=== PATIENT | male | born 1965 | race Caucasian/White ===

== ENCOUNTER → 2020-07-19 08:03 | Outpatient (CLI) | payer OTHER, BC, SELFPAY ==
[2020-07-19 11:20] LABS: COVID19 -Nasal RAPID Negative (Negative)
== END ==
PROVIDERS: Family Provider Family Medicine; PCP Family Medicine; Visit Provider Family Medicine Sleep Medicine
DX: Z20.822 Contact with and (suspected) exposure to COVID-19 (principal)
CPT/HCPCS: 87635; C9803

== ENCOUNTER → 2021-04-26 09:50 | Outpatient (CLI) | payer BC, OTHER, SELFPAY ==
[2021-04-26 10:33] LABS: Add Manual Diff / Slide Review NO; Basophils Absolute Auto 0 /uL (0-100); Basophils Percent Auto 0.5 % (0-2); Eosinophils Absolute Auto 100 /uL (0-450); Eosinophils Percent Auto 2.1 % (2-4); Hemoglobin 15.6 g/dL (13.5-17.5); Lymphocytes Absolute Auto 2000 /uL (1100-4500); Lymphocytes Percent Auto 30.1 % (25-40); Mean Corpuscular HGB Conc 34.5 % (30-36); Mean Corpuscular Hemoglobin 30.3 PG (26-34); Mean Corpuscular Volume 87.7 fL (80-100); Monocytes Absolute Auto 800 /uL (0-900); Monocytes Percent Auto 12.1 % (3-14); Neutrophils Absolute Auto 3600 /uL (1500-7000); Neutrophils Percent Auto 55.2 % (50-75); Platelet Count 203 X10^3/uL (150-400); Red Blood Cell Count 5.13 X10^6/uL (4.5-5.9); Red Cell Distribution Width 12.7 % (11.6-14.8); White Blood Cell Count 6.6 X10^3/uL (4.5-11.0)
[2021-04-26 11:50] LABS: Alanine Aminotransferase 23 IU/L (<50); Albumin 4.4 g/dL (3.5-5.0); Albumin Globulin Ratio 1.7 (1.0-2.8); Alkaline Phosphatase 67 U/L (38-126); Aspartate Aminotransferase 23 IU/L (17-59); BUN Creatinine Ratio 17.4 (6-22); Bilirubin Total 0.9 mg/dL (0.2-1.3); Blood Urea Nitrogen 19 mg/dL (9-20); Calcium 9.8 mg/dL (8.4-10.2); Carbon Dioxide 31 mmol/L (22-32); Chloride 98 mmol/L (98-107); Cholesterol 205 mg/dL (140-199); Estimated Glomerular Filt Rate > 60.0 mL/min (>60); Globulin 2.6 g/dL (1.7-4.1); Glucose 101 mg/dL (70-100); HDL Cholesterol 36 mg/dL (40-60); HEMOLYSIS < 15 (0-50); LDL Cholesterol Calculated 137 mg/dL (<100); Potassium 4.5 mmol/L (3.4-5.1); Sodium 136 mmol/L (137-145); Triglycerides 162 mg/dL (35-150)
[2021-04-26 12:19] LABS: Prostate Specific Antigen 1.24 ng/mL (0.10-4.00)
[2021-04-27 16:57] LABS: SARS CoV19 IgG Negative (Negative); SARS-CoV19- IgM Negative (Negative)
== END ==
PROVIDERS: Family Provider Family Medicine; PCP Family Medicine; Referring Provider Family Medicine; Visit Provider Family Medicine
DX: K51.90 Ulcerative colitis, unspecified, without complications (principal); Z13.220 Encounter for screening for lipoid disorders; Z12.5 Encounter for screening for malignant neoplasm of prostate; Z78.9 Other specified health status
CPT/HCPCS: 36415; 80053; 80061; 84153; 85025; 86769

== ENCOUNTER → 2021-05-03 16:36 | Outpatient (CLI) | payer BC, OTHER, SELFPAY ==
[2021-05-03 17:35] LABS: Add Manual Diff / Slide Review NO; Basophils Absolute Auto 0 /uL (0-100); Basophils Percent Auto 0.4 % (0-2); Eosinophils Absolute Auto 100 /uL (0-450); Eosinophils Percent Auto 1.7 % (2-4); Hematocrit 44.1 % (41-53); Hemoglobin 15.1 g/dL (13.5-17.5); Lymphocytes Absolute Auto 2800 /uL (1100-4500); Lymphocytes Percent Auto 32.7 % (25-40); Mean Corpuscular HGB Conc 34.3 % (30-36); Mean Corpuscular Hemoglobin 30.1 PG (26-34); Mean Corpuscular Volume 87.8 fL (80-100); Monocytes Absolute Auto 900 /uL (0-900); Monocytes Percent Auto 10.4 % (3-14); Neutrophils Absolute Auto 4800 /uL (1500-7000); Neutrophils Percent Auto 54.8 % (50-75); Platelet Count 223 X10^3/uL (150-400); Red Blood Cell Count 5.02 X10^6/uL (4.5-5.9); Red Cell Distribution Width 12.7 % (11.6-14.8); White Blood Cell Count 8.7 X10^3/uL (4.5-11.0)
[2021-05-03 18:05] LABS: Alanine Aminotransferase 21 IU/L (<50); Albumin 4.4 g/dL (3.5-5.0); Albumin Globulin Ratio 1.7 (1.0-2.8); Alkaline Phosphatase 67 U/L (38-126); Aspartate Aminotransferase 25 IU/L (17-59); BUN Creatinine Ratio 23.7 (6-22); Bilirubin Total 0.7 mg/dL (0.2-1.3); Blood Urea Nitrogen 22 mg/dL (9-20); C-Reactive Protein Quant < 0.5 mg/dL (<1.0); Calcium 9.3 mg/dL (8.4-10.2); Carbon Dioxide 30 mmol/L (22-32); Chloride 99 mmol/L (98-107); Estimated Glomerular Filt Rate > 60.0 mL/min (>60); Globulin 2.6 g/dL (1.7-4.1); Glucose 94 mg/dL (70-100); HEMOLYSIS 23 (0-50); Potassium 4.2 mmol/L (3.4-5.1); Sodium 136 mmol/L (137-145)
[2021-05-03 18:31] LABS: Erythrocyte Sedimentation Rate 2 MM/HR (0-15)
== END ==
PROVIDERS: Family Provider Family Medicine; PCP Family Medicine; Referring Provider Physician Assistant; Visit Provider Physician Assistant
DX: K51.90 Ulcerative colitis, unspecified, without complications (principal)
CPT/HCPCS: 36415; 80053; 85025; 85651; 86140

== ENCOUNTER → 2022-07-03 12:22 | Outpatient (CLI) | payer BC, OTHER, SELFPAY ==
[2022-07-03 13:03] LABS: Add Manual Diff / Slide Review NO; Basophils Absolute Auto 100 /uL (0-100); Basophils Percent Auto 0.6 % (0-2); Eosinophils Absolute Auto 100 /uL (0-450); Eosinophils Percent Auto 1.4 % (2-4); Hematocrit 45.4 % (41-53); Hemoglobin 15.7 g/dL (13.5-17.5); Lymphocytes Absolute Auto 2600 /uL (1100-4500); Lymphocytes Percent Auto 32.5 % (25-40); Mean Corpuscular HGB Conc 34.7 % (30-36); Mean Corpuscular Hemoglobin 30.3 PG (26-34); Mean Corpuscular Volume 87.3 fL (80-100); Monocytes Absolute Auto 1000 /uL (0-900); Monocytes Percent Auto 12.1 % (3-14); Neutrophils Absolute Auto 4200 /uL (1500-7000); Neutrophils Percent Auto 53.4 % (50-75); Platelet Count 213 X10^3/uL (150-400); White Blood Cell Count 7.9 X10^3/uL (4.5-11.0)
[2022-07-03 13:40] LABS: Alanine Aminotransferase 25 IU/L (<50); Albumin 4.4 g/dL (3.5-5.0); Albumin Globulin Ratio 1.4 (1.0-2.8); Alkaline Phosphatase 72 U/L (38-126); Aspartate Aminotransferase 23 IU/L (17-59); BUN Creatinine Ratio 25.3 (6-22); Bilirubin Total 0.4 mg/dL (0.2-1.3); Blood Urea Nitrogen 24 mg/dL (9-20); Carbon Dioxide 30 mmol/L (22-32); Chloride 98 mmol/L (98-107); Estimated Glomerular Filt Rate > 60 mL/min (>60); Globulin 3.2 g/dL (1.7-4.1); Glucose 96 mg/dL (70-100); HEMOLYSIS < 15 (0-50); Potassium 4.5 mmol/L (3.4-5.1); Sodium 139 mmol/L (137-145); Total Protein 7.6 g/dL (6.3-8.2)
[2022-07-03 14:42] LABS: TSH w/ Reflex to FT4 0.61 uIU/mL (0.47-4.68)
[2022-07-07 11:34] LABS: Cholesterol 213 mg/dL (140-199); HDL Cholesterol 34 mg/dL (40-60); LDL Cholesterol Calculated 147 mg/dL (<100); Triglycerides 158 mg/dL (35-150)
== END ==
PROVIDERS: Family Provider Family Medicine; PCP Family Medicine; Referring Provider Family Medicine; Visit Provider Family Medicine
DX: E78.2 Mixed hyperlipidemia (principal); I10 Essential (primary) hypertension; K51.90 Ulcerative colitis, unspecified, without complications; R10.9 Unspecified abdominal pain
CPT/HCPCS: 36415; 80053; 80061; 84443; 85025

== ENCOUNTER → 2022-07-15 11:29 | Outpatient (CLI) | payer BC, OTHER, SELFPAY ==
--- NOTE | 2022-07-15 11:31 | DI.US.S_ITS ---
PROCEDURE: US ABDOMEN COMPLETE INDICATIONS: ABDOMINAL PAIN TECHNIQUE: Real-time scanning was performed of the abdominal and retroperitoneal organs, with image documentation. COMPARISON: [facility], CT, ABDOMEN/PELVIS WITH CONTRAST, 02/23/2009, 6:54. FINDINGS: Liver: The liver demonstrates normal size. The liver demonstrates generalized mildly increased echogenicity. This decreases ultrasound sensitivity for detection of hepatic masses. Multiple liver cysts are seen. Within the left mid liver, there is an 8 mm cyst seen. Within the left liver anteriorly, there is a septated 7 mm cyst seen. Within the anterior right liver, there is a septated 11 mm cyst. Gallbladder: No findings of gallstones or sludge are seen. The gallbladder wall is not thickened, measuring 3 mm or less. No specific pericholecystic fluid is seen. The sonographic Dailey sign is negative. Biliary ducts: Intrahepatic bile ducts are non-dilated. Extrahepatic bile duct caliber measures 3 mm. Normal is 6-7 mm or less in diameter, or 10 mm or less post-cholecystectomy. Pancreas: Not well seen. Spleen: Spleen is normal in size and homogeneous in echotexture. Kidneys: Kidneys are normal in size and echotexture. Right kidney measures 11.3 cm long; left kidney measures 11.7 cm long. No hydronephrosis or nephrolithiasis. No solid masses. Aorta: Visualized aorta is normal in caliber at less than 3 cm. Iliacs: Not well seen. IVC: Intrahepatic inferior vena cava is patent. Miscellaneous: No free abdominal fluid. IMPRESSION: The gallbladder demonstrates a normal sonographic appearance. No biliary dilatation is seen. The pancreas and the iliac arteries are not well seen. Home pectus Additional findings: Simple appearing liver cysts Mild fatty liver infiltration Dictated by: Tomás Bey M.D. on 07/15/2022 at 12:49 Approved by: Tomás Bey M.D. on 07/15/2022 at 12:51
== END ==
PROVIDERS: Family Provider Family Medicine; PCP Family Medicine; Referring Provider Family Medicine; Visit Provider Family Medicine
DX: K51.90 Ulcerative colitis, unspecified, without complications (principal); K76.89 Other specified diseases of liver; K76.0 Fatty (change of) liver, not elsewhere classified; I10 Essential (primary) hypertension; E78.2 Mixed hyperlipidemia; R10.9 Unspecified abdominal pain
CPT/HCPCS: 76700

== ENCOUNTER → 2023-07-11 08:12 | Outpatient (CLI) | payer BC, OTHER, SELFPAY ==
[2023-07-11 09:08] LABS: Add Manual Diff / Slide Review NO; Basophils Absolute Auto 0 /uL (0-100); Basophils Percent Auto 0.7 % (0-2); Eosinophils Absolute Auto 200 /uL (0-450); Eosinophils Percent Auto 3.1 % (2-4); Hematocrit 45.7 % (41-53); Hemoglobin 15.8 g/dL (13.5-17.5); Lymphocytes Absolute Auto 2000 /uL (1100-4500); Lymphocytes Percent Auto 33.1 % (25-40); Mean Corpuscular HGB Conc 34.4 % (30-36); Mean Corpuscular Hemoglobin 29.9 PG (26-34); Mean Corpuscular Volume 86.8 fL (80-100); Monocytes Absolute Auto 900 /uL (0-900); Monocytes Percent Auto 14.3 % (3-14); Neutrophils Absolute Auto 2900 /uL (1500-7000); Neutrophils Percent Auto 48.8 % (50-75); Platelet Count 197 X10^3/uL (150-400); Red Blood Cell Count 5.27 X10^6/uL (4.5-5.9); Red Cell Distribution Width 12.6 % (11.6-14.8)
[2023-07-11 09:49] LABS: Alanine Aminotransferase 28 IU/L (<50); Albumin 4.1 g/dL (3.5-5.0); Albumin Globulin Ratio 1.4 (1.0-2.8); Alkaline Phosphatase 65 U/L (38-126); Aspartate Aminotransferase 27 IU/L (17-59); BUN Creatinine Ratio 17.2 (6-22); Bilirubin Total 0.7 mg/dL (0.2-1.3); Blood Urea Nitrogen 16 mg/dL (9-20); Calcium 9.7 mg/dL (8.4-10.2); Carbon Dioxide 27 mmol/L (22-32); Chloride 100 mmol/L (98-107); Estimated Glomerular Filt Rate > 60 mL/min (>60); Glucose 104 mg/dL (70-100); HEMOLYSIS < 15 (0-50); Lipase 376 U/L (23-300); Sodium 135 mmol/L (137-145); Total Protein 7.1 g/dL (6.3-8.2)
[2023-07-11 09:56] LABS: Potassium 4.3 mmol/L (3.4-5.1)
[2023-07-11 10:30] LABS: TSH w/ Reflex to FT4 0.72 uIU/mL (0.47-4.68)
== END ==
LOC: LAB 08:14
PROVIDERS: Family Provider Family Medicine; PCP Family Medicine; Referring Provider Family Medicine; Visit Provider Family Medicine
DX: I10 Essential (primary) hypertension (principal); E78.2 Mixed hyperlipidemia
CPT/HCPCS: 36415; 80053; 83690; 84443; 85025

== ENCOUNTER → 2024-04-28 07:04 | Outpatient (CLI) | payer BC, OTHER, SELFPAY ==
[2024-04-28 08:22] LABS: Add Manual Diff / Slide Review NO; Basophils Absolute Auto 0 /uL (0-100); Basophils Percent Auto 0.6 % (0-2); Eosinophils Absolute Auto 100 /uL (0-450); Eosinophils Percent Auto 1.9 % (2-4); Hematocrit 48.6 % (41-53); Hemoglobin 16.4 g/dL (13.5-17.5); Lymphocytes Absolute Auto 1900 /uL (1100-4500); Lymphocytes Percent Auto 31.3 % (25-40); Mean Corpuscular HGB Conc 33.8 % (30-36); Mean Corpuscular Hemoglobin 30.1 PG (26-34); Monocytes Absolute Auto 800 /uL (0-900); Monocytes Percent Auto 12.9 % (3-14); Neutrophils Absolute Auto 3200 /uL (1500-7000); Neutrophils Percent Auto 53.3 % (50-75); Platelet Count 203 X10^3/uL (150-400); Red Blood Cell Count 5.45 X10^6/uL (4.5-5.9); Red Cell Distribution Width 12.5 % (11.6-14.8); White Blood Cell Count 5.9 X10^3/uL (4.5-11.0)
[2024-04-28 08:46] LABS: Alanine Aminotransferase 22 IU/L (<50); Albumin 4.2 g/dL (3.5-5.0); Albumin Globulin Ratio 1.6 (1.0-2.8); Alkaline Phosphatase 70 U/L (38-126); Aspartate Aminotransferase 21 IU/L (17-59); BUN Creatinine Ratio 15.5 (6-22); Bilirubin Total 0.4 mg/dL (0.2-1.3); Blood Urea Nitrogen 17 mg/dL (9-20); Calcium 9.3 mg/dL (8.4-10.2); Carbon Dioxide 31 mmol/L (22-32); Chloride 103 mmol/L (98-107); Cholesterol 189 mg/dL (140-199); Estimated Glomerular Filt Rate > 60 mL/min (>60); Globulin 2.6 g/dL (1.7-4.1); Glucose 109 mg/dL (70-100); HDL Cholesterol 36 mg/dL (40-60); HEMOLYSIS < 15 (0-50); LDL Cholesterol Calculated 140 mg/dL (<100); Lipase 110 U/L (23-300); Potassium 4.8 mmol/L (3.4-5.1); Sodium 139 mmol/L (137-145); Total Protein 6.8 g/dL (6.3-8.2); Triglycerides 64 mg/dL (35-150)
[2024-04-28 09:14] LABS: TSH w/ Reflex to FT4 0.45 uIU/mL (0.47-4.68)
[2024-04-28 09:15] LABS: Prostate Specific Antigen Scrn 1.39 ng/mL (0.1-4.0)
[2024-04-28 10:43] LABS: Free T4, Direct Thyroxine 1.35 ng/dL (0.78-2.19)
== END ==
PROVIDERS: Family Provider Family Medicine; PCP Family Medicine; Referring Provider Family Medicine; Visit Provider Family Medicine
DX: I10 Essential (primary) hypertension (principal); E78.2 Mixed hyperlipidemia; K51.90 Ulcerative colitis, unspecified, without complications; N52.9 Male erectile dysfunction, unspecified; Z12.5 Encounter for screening for malignant neoplasm of prostate
CPT/HCPCS: 36415; 80053; 80061; 83690; 84439; 84443; 85025; G0103

== ENCOUNTER → 2024-08-13 10:57 | Outpatient (CLI) | payer BC, OTHER, SELFPAY ==
[2024-08-13 14:29] LABS: TSH w/ Reflex to FT4 0.35 uIU/mL (0.47-4.68)
[2024-08-13 14:54] LABS: Free T4, Direct Thyroxine 1.34 ng/dL (0.78-2.19)
== END ==
LOC: LAB 10:59
PROVIDERS: Family Provider Family Medicine; PCP Family Medicine; Referring Provider Physician Assistant; Visit Provider Physician Assistant
DX: R79.89 Other specified abnormal findings of blood chemistry (principal)
CPT/HCPCS: 36415; 84439; 84443

== ENCOUNTER → 2024-11-19 11:02 | Outpatient (CLI) | payer BC, OTHER, SELFPAY ==
[2024-11-19 13:16] LABS: Free T3, Triiodothyronine Free 4.61 pg/mL (2.77-5.27)
[2024-11-19 13:31] LABS: TSH w/ Reflex to FT4 0.35 uIU/mL (0.47-4.68)
[2024-11-19 15:01] LABS: Free T4, Direct Thyroxine 1.31 ng/dL (0.78-2.19)
== END ==
PROVIDERS: Family Provider Family Medicine; PCP Family Medicine; Referring Provider Physician Assistant; Visit Provider Physician Assistant
DX: R79.89 Other specified abnormal findings of blood chemistry (principal)
CPT/HCPCS: 36415; 84439; 84443; 84481

== ENCOUNTER → 2025-03-06 16:58 | Outpatient (CLI) | payer BC, OTHER, SELFPAY ==
[2025-03-06 17:20] LABS: Add Manual Diff / Slide Review NO; Hematocrit 39.3 % (41-53); Hemoglobin 13.4 g/dL (13.5-17.5); Lymphocytes Absolute Auto 2400 /uL (1100-4500); Mean Corpuscular HGB Conc 34.0 % (30-36); Mean Corpuscular Hemoglobin 28.6 PG (26-34); Mean Corpuscular Volume 84.2 fL (80-100); Platelet Count 286 X10^3/uL (150-400)
[2025-03-06 18:05] LABS: Alanine Aminotransferase 16 IU/L (<50); Albumin 3.5 g/dL (3.5-5.0); Albumin Globulin Ratio 1.3 (1.0-2.8); Alkaline Phosphatase 67 U/L (38-126); Blood Urea Nitrogen 20 mg/dL (9-20); Calcium 8.5 mg/dL (8.4-10.2); Carbon Dioxide 29 mmol/L (22-32); Chloride 99 mmol/L (98-107); Estimated Glomerular Filt Rate > 60 mL/min (>60); Globulin 2.7 g/dL (1.7-4.1); Glucose 103 mg/dL (70-99); HEMOLYSIS < 15 (0-50); Potassium 4.2 mmol/L (3.4-5.1); Sodium 134 mmol/L (137-145); Total Protein 6.2 g/dL (6.3-8.2)
== END ==
PROVIDERS: Family Provider Family Medicine; PCP Family Medicine; Referring Provider Family Medicine; Visit Provider Family Medicine
DX: K51.90 Ulcerative colitis, unspecified, without complications (principal)
CPT/HCPCS: 36415; 80053; 85025

== ENCOUNTER 2025-03-09 16:54 | Emergency (ER) | payer BC, OTHER, SELFPAY ==
[2025-03-09] VITALS (7 sets, daily range): BP systolic 121–143; BP diastolic 76–88; PULSE 72–82; RESP 12–20; TEMP 37.2–37.4; O2SAT 96–98; BMI 26.9
--- NOTE | 2025-03-09 17:22 | DI.CT.S_ITS ---
PROCEDURE: CT ABDOMEN PELVIS W CON INDICATIONS: abd pain TECHNIQUE: After the administration of intravenous contrast, axial sections acquired from the lung bases to the pubic symphysis. Coronal and sagittal reformats were performed. For radiation dose reduction, the following was used: automated exposure control, adjustment of mA and/or kV according to patient size. COMPARISON: None. FINDINGS: Image quality: Diagnostic. Lower Chest: No significant findings. ABDOMEN: Liver: No solid mass. Gallbladder: No radiopaque gallstones or wall thickening. Biliary ducts: No biliary dilation. Pancreas: No ductal dilation. Spleen: Size is within normal limits. Adrenal Glands: No adrenal nodules. Kidneys and Ureters: No hydronephrosis. No solid mass. No complex renal cystic lesion which requires follow up. Stomach and Bowel: Marked edema and thickening involving the duodenal bulb. Inflammatory change in the adjacent fat. Suspect duodenal ulcer. Reference axial images 47-63. Additionally, there is diffuse thickening and there is edema present involving the entirety of the rectum. Reference coronal series 4 images 50 through 77. There is a skip area in the mid to distal sigmoid. Reference image 33 of series 4. The proximal sigmoid is edematous with wall thickening. Reference coronal image 40 of series 4. Peritoneum: No abnormal intraperitoneal fluid. No free air. There are mildly enlarged mesenteric lymph nodes in the region of sigmoid and rectal inflammation. Ventral Wall: No significant ventral hernia. Abdominal Nodes: No retroperitoneal or mesenteric adenopathy by size criteria. Vessels: Aorta and inferior vena cava are normal in size. PELVIS: Pelvic Organs: Unremarkable. Bladder: No bladder wall thickening, accounting for underdistention. Pelvic Nodes: No enlarged lymph nodes. Miscellaneous: No inguinal hernias are seen. Bones: No aggressive osseous abnormality. IMPRESSION: 1. Suspect duodenal bulb ulcer. 2. Proctitis involving the entirety of the rectum, with a intervening normal segment of sigmoid and markedly abnormal segment of proximal sigmoid. Consider possible Crohn's colitis with a skip lesion.. Dictated by: Vinny Wong M.D. on 03/09/2025 at 18:02 Approved by: Vinny Wong M.D. on 03/09/2025 at 18:10
[2025-03-09 17:38] LABS: Add Manual Diff / Slide Review NO; Hematocrit 39.7 % (41-53); Hemoglobin 13.6 g/dL (13.5-17.5); Lymphocytes Absolute Auto 2400 /uL (1100-4500); Mean Corpuscular HGB Conc 34.2 % (30-36); Mean Corpuscular Hemoglobin 28.4 PG (26-34); Mean Corpuscular Volume 82.9 fL (80-100); Platelet Count 316 X10^3/uL (150-400)
[2025-03-09 17:45] LABS: INR 1.1 (0.9-1.3); Prothrombin Time 12.2 SECONDS (9.4-12.5)
[2025-03-09 17:47] LABS: PTT Partial Thromboplastin Tim 27 SECONDS (25.1-36.5)
[2025-03-09 17:48] LABS: Alanine Aminotransferase 17 IU/L (<50); Albumin 4.0 g/dL (3.5-5.0); Albumin Globulin Ratio 1.3 (1.0-2.8); Alkaline Phosphatase 76 U/L (38-126); Blood Urea Nitrogen 14 mg/dL (9-20); Calcium 8.9 mg/dL (8.4-10.2); Carbon Dioxide 26 mmol/L (22-32); Chloride 99 mmol/L (98-107); Estimated Glomerular Filt Rate > 60 mL/min (>60); Globulin 3.1 g/dL (1.7-4.1); Glucose 104 mg/dL (70-99); HEMOLYSIS < 15 (0-50); Potassium 4.0 mmol/L (3.4-5.1); Sodium 134 mmol/L (137-145); Total Protein 7.1 g/dL (6.3-8.2)
[2025-03-09] MEDS: LACTATED RINGERS 1,000 ML 1000 ML IV (18:03)
[2025-03-09] MEDS: KETOROLAC 30 MG/ML VIAL 15 MG IV (18:03)
--- NOTE | 2025-03-09 18:04 | ED.ABDPAIN ---
HPI - Abdominal Pain General Chief Complaint: Abdominal Pain Stated Complaint: worsening ulcerative colitis Time Seen by Provider: 03/09/25 17:21 Source: patient Mode of arrival: Ambulatory History of Present Illness HPI narrative: 59-year-old male with history of ulcerative colitis diagnosis 10+ years ago, has had GI consultation through [facility], had been on mesalamine for the last 4 years, had colonoscopy with [facility] GI doctor Isi, post colonoscopy the mesalamine was discontinued, azathioprine was started, patient also had 14 day course of daily hydrocortisone enemas. Patient seemed to have initial improvement of worsening cramping anus and intermittent GI bleeding symptoms since August, after above change in medical regimen. Worsened to last few days. Three days ago saw Dr. Glasgow PCP here, started on oral prednisone, now day 3 of oral prednisone. Having increased cramping anus. Having increased abdominal pain that seems more upper than usual lower abdominal pain. Some nausea without emesis. Dry heave retching. Denies painful or frequent urination. Having intermittent bright red blood per rectum, since August but intermittent over the last few days, does not recall prior transfusions for blood loss. Denies use of blood thinner medications. 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 HEAD: Atraumatic. Normocephalic. EYES: Pupils equal round and reactive. Extraocular motions intact. No scleral icterus. No injection or drainage. ENT: Nose without bleeding, purulent drainage. Throat without erythema, tonsillar hypertrophy or exudate. Airway patent. NECK: Trachea midline. Non tender CARDIOVASCULAR: Regular rate and rhythm without murmurs, gallops, or rubs. RESPIRATORY: Clear to auscultation. Breath sounds equal bilaterally. No wheezes, rales, or rhonchi. GASTROINTESTINAL: Abdomen soft, non-tender, nondistended. No tenderness upper versus lower, left versus right, nor central or inguinal regions anterior abdominal exam. EXTREMITIES: No edema or joint tenderness. BACK: Nontender without deformity or crepitance. No flank tenderness. NEURO: AOx3. Motor functions grossly nonfocal. SKIN: No rash or erythema of visible areas Initial Vital Signs Initial Vital Signs: Vital Signs Temperature 98.9 F 03/09/25 17:10 Pulse Rate 72 03/09/25 17:10 Respiratory Rate 16 03/09/25 17:10 Blood Pressure 126/84 03/09/25 17:10 Pulse Oximetry 97 03/09/25 17:10 Oxygen Delivery Method Room Air 03/09/25 17:10 Course Orders Ordered: ED Orders 03/09/25 19:31 Urinalysis and Microscopic Stat Discontinued Medications Lactated Ringer's (Lactated Ringers) 1,000 mls @ 1,000 mls/hr IV BOLUS ONE Stop: 03/09/25 18:21 Last Infusion: 03/09/25 18:58 Dose: Infused Documented By: Admin: 03/09/25 18:03 Dose: 1,000 mls/hr Documented By: LEO Ketorolac Tromethamine (Ketorolac 30 Mg/Ml Vial) 15 mg IV NOW ONE Stop: 03/09/25 17:23 Last Admin: 03/09/25 18:03 Dose: 15 mg Documented By: LEO Ondansetron HCl (Ondansetron 4 Mg/2 Ml Inj) 4 mg IV NOW PRN PRN Reason: Nausea And Vomiting Last Admin: 03/09/25 19:19 Dose: 4 mg Documented By: DANIS Ondansetron HCl (Ondansetron 4 Mg Odt) 4 mg PO NOW PRN PRN Reason: Nausea And Vomiting Ondansetron HCl (Ondansetron 4 Mg Odt Prepack) 1 bottle MISC DIRECTED ONE Stop: 03/09/25 20:35 Last Admin: 03/09/25 20:36 Dose: 1 bottle Documented By: LIBBY Pantoprazole Sodium (Pantoprazole 40 Mg Vial) 80 mg IV NOW ONE Stop: 03/09/25 18:33 Last Admin: 03/09/25 18:58 Dose: 80 mg Documented By: RLC Vital Signs Vital signs: Vital Signs - 8 hr 03/09/25 20:30 03/09/25 20:30 Temperature 99.3 F Pulse Rate 82 Respiratory Rate 15 Blood Pressure 143/88 H Pulse Oximetry 97 MDM - Abdominal Pain Lab Data Attestation: I reviewed the patient's lab results. Lab results narrative: White blood cell count 53243, hemoglobin 13.6, platelets 316,000. Glucose 104. BUN 14 with creatinine 0.82, serum CO2 26, BUN 134 with potassium 4.0. Liver functions normal. Lipase pending. 03/09/25 17:25 03/09/25 17:25 Labs: Lab Results 03/09/25 03/09/25 Range/Units 17:25 19:31 WBC 16.7 H (4.5-11.0) X10^3/uL RBC 4.79 (4.5-5.9) X10^6/uL Hgb 13.6 (13.5-17.5) g/dL Hct 39.7 L (41-53) % MCV 82.9 (80-100) fL MCH 28.4 (26-34) PG MCHC 34.2 (30-36) % RDW 12.9 (11.6-14.8) % Plt Count 316 (150-400) X10^3/uL Neut % (Auto) 74.1 (50-75) % Lymph % (Auto) 14.3 L (25-40) % [place] % (Auto) 11.0 (3-14) % Eos % (Auto) 0.2 L (2-4) % Baso % (Auto) 0.4 (0-2) % Neut # (Auto) 40161 H (6138-6341) /uL Lymph # (Auto) 2400 (0264-7167) /uL [place] # (Auto) 1800 H (0-900) /uL Eos # (Auto) 0 (0-450) /uL Baso # (Auto) 100 (0-100) /uL PT 12.2 (9.4-12.5) SECONDS INR 1.1 (0.9-1.3) APTT 27 (25.1-36.5) SECONDS Sodium 134 L (137-145) mmol/L Potassium 4.0 (3.4-5.1) mmol/L Chloride 99 (98-107) mmol/L Carbon Dioxide 26 (22-32) mmol/L BUN 14 (9-20) mg/dL Creatinine 0.82 (0.66-1.25) mg/dL Estimated GFR > 60 (>60) mL/min BUN/Creatinine Ratio 17.1 (6-22) Glucose 104 H (70-99) mg/dL Calcium 8.9 (8.4-10.2) mg/dL Total Bilirubin 0.5 (0.2-1.3) mg/dL AST 20 (17-59) IU/L ALT 17 (<50) IU/L Alkaline Phosphatase 76 (38-126) U/L Total Protein 7.1 (6.3-8.2) g/dL Albumin 4.0 (3.5-5.0) g/dL Globulin 3.1 (1.7-4.1) g/dL Albumin/Globulin Ratio 1.3 (1.0-2.8) Lipase 582 H (23-300) U/L Urine Color Yellow Urine Appearance Clear Urine pH 6.0 (4.5-8.0) Ur Specific [place] <=1.005 (1.000-1.035) Urine Protein Negative (Negative) Urine Glucose (UA) Negative (Negative) g/dL Urine Ketones Negative (NEGATIVE) Urine Occult Blood Negative (Negative) Urine Nitrate Negative (Negative) Urine Bilirubin Negative (NEGATIVE) Urine Urobilinogen 0.2 (0.2) E.U./dL Ur Leukocyte Esterase Negative (NEGATIVE) Urine RBC None seen (0-5/HPF) Urine WBC None seen (0-5/HPF) Ur Squamous Epith Cells None seen (0-5/HPF) Urine Bacteria None seen (None) Vol Urine Centrifuged 10ml (spun) Blood Type O Positive Antibody Screen Negative Imaging Data CT scan - abdomen/pelvis: Radiologist's Impression: [address] [address] [address] Scan Report Signed Patient: Santiago Chi MR#: [id number] : 1965 Acct:[id number] Age/Sex: 59 / M Date of Service: 03/09/25 Loc: ED Accession Number: [id number] Procedure: CT abdomen pelvis w con Ordering Provider: Abel Montgomery D.O. PROCEDURE: CT ABDOMEN PELVIS W CON INDICATIONS: abd pain TECHNIQUE: After the administration of intravenous contrast, axial sections acquired from the lung bases to the pubic symphysis. Coronal and sagittal reformats were performed. For radiation dose reduction, the following was used: automated exposure control, adjustment of mA and/or kV according to patient size. COMPARISON: None. FINDINGS: Image quality: Diagnostic. Lower Chest: No significant findings. ABDOMEN: Liver: No solid mass. Gallbladder: No radiopaque gallstones or wall thickening. Biliary ducts: No biliary dilation. Pancreas: No ductal dilation. Spleen: Size is within normal limits. Adrenal Glands: No adrenal nodules. Kidneys and Ureters: No hydronephrosis. No solid mass. No complex renal cystic lesion which requires follow up. Stomach and Bowel: Marked edema and thickening involving the duodenal bulb. Inflammatory change in the adjacent fat. Suspect duodenal ulcer. Reference axial images 47-63. Additionally, there is diffuse thickening and there is edema present involving the entirety of the rectum. Reference coronal series 4 images 50 through 77. There is a skip area in the mid to distal sigmoid. Reference image 33 of series 4. The proximal sigmoid is edematous with wall thickening. Reference coronal image 40 of series 4. Peritoneum: No abnormal intraperitoneal fluid. No free air. There are mildly enlarged mesenteric lymph nodes in the region of sigmoid and rectal inflammation. Ventral Wall: No significant ventral hernia. Abdominal Nodes: No retroperitoneal or mesenteric adenopathy by size criteria. Vessels: Aorta and inferior vena cava are normal in size. PELVIS: Pelvic Organs: Unremarkable. Bladder: No bladder wall thickening, accounting for underdistention. Pelvic Nodes: No enlarged lymph nodes. Miscellaneous: No inguinal hernias are seen. Bones: No aggressive osseous abnormality. IMPRESSION: 1. Suspect duodenal bulb ulcer. 2. Proctitis involving the entirety of the rectum, with a intervening normal segment of sigmoid and markedly abnormal segment of proximal sigmoid. Consider possible Crohn's colitis with a skip lesion.. Dictated by: Vinny Wong M.D. on 03/09/2025 at 18:02 Approved by: Vinny Wong M.D. on 03/09/2025 at 18:10 [facility] Narrative Medical decision making narrative: 59-year-old male with history of ulcerative colitis follow up by Natalie BLUNT with recent colonoscopy 01/23/2025 prompting change in medical therapy from for years duration of mesalamine 2 new azathioprine, 14 day course of hydrocortisone enemas, now day 3 of oral prednisone from clinic visit PCP Dr. Glasgow, due to recent increased colitis symptoms of crampy numbness and increased frequency of bright red blood per rectum. Afebrile, sirs screen negative. Prior provider initiated orders including IV Toradol, IV ondansetron, fluid bolus. Labs pending. Lab results: White blood cell count 57284, hemoglobin 13.6, platelets 316,000. Glucose 104. BUN 14 with creatinine 0.82, serum CO2 26, BUN 134 with potassium 4.0. Liver functions normal. Lipase pending. CT abdomen pelvis. Impressions: 1. Suspect duodenal bulb ulcer. 2. Proctitis involving the entirety of the rectum, with a intervening normal segment of sigmoid and markedly abnormal segment of proximal sigmoid. Consider possible Crohn's colitis with a skip lesion. See radiology report. Proctitis also proximal sigmoid segment, skip lesion like, consider Crohn's, see radiology report. We will contact Natalie BLUNT. We will add IV Protonix given duodenal bulb ulcer like changes. 1930, case discussed with Dr Nils Estrada, we would not recommend transfer, has recently been scoped, he wonders if the enemas of hydrocortisone skipped the rectum and therefore created skip like lesion, no Re scope/biopsy now. Can admit here on IV steroids, recommends Solu-Medrol. We will contact cross cover. PCP Mark. We will contact cross cover provider. Case discussed with Dr. Daniels, can admit on IV steroid, also consider further observation on 50 mg oral steroid, might need further time. No antibiotics for now. Patient elects to have outpatient observation, with return precautions. And to see PCP Mark on Thursday. Discharged home per patient preference, declined offer to admit to service of [facility] for IV steroid treatment. Continue oral steroid course. Add omeprazole [id number] daily for 2-4 weeks. Follow up with PCP Mark on Thursday in 3 days. Return precautions discussed. Discharge Plan Departure Patient Disposition: Home Clinical Impression: Abdominal pain, History of ulcerative colitis, Acute proctitis, Colitis, Duodenitis Instructions: DI for Abdominal Pain-Adult, DI for Colitis Activity Restrictions/Additional Instructions: History of ulcerative colitis, intermittent cramping, ongoing bleeding. No fever on triage. No significant tenderness on palpation. Elevated white blood cell count 17240 but you had been recently on steroids that can elevate the white blood cell count, not necessarily elevated due to inflammation/infection. CT scan showed proctitis inflammation changes of the rectal area, then a normal area of the next portion of the sigmoid colon, then inflammatory changes of the sigmoid colon. Proctitis and colitis noted. This could be consistent with your ulcerative colitis, or could be due to some other process. Case was discussed with Gastroenterology on-call at [facility] Dr. Wray who did not believe that you need to be transferred at this time or needed repeat colonoscopy at this time, could further observe or admit on IV steroids. Case discussed with cross cover physician Dr. Daniels here, who could accept you for admission for IV steroids to hasten improvement of ulcerative colitis flare, but you could also consider seeing how you do on the same prednisone 50 mg dose, as you might need a little bit more time to notice significant improvement. Hold antibiotics for now. You have elected not to be admitted for now. There was small duodenitis, small duodenal ulcer also noted on scanning, consider omeprazole 20 mg daily 1 month course. Recheck with your regular doctor, Dr. Flores on Thursday. Return to this/nearest emergency department for any change worsening symptoms or any concerns prior. Prescriptions: No Action lisinopril 40 mg tablet 40 mg PO DAILY Qty: 90 3RF tadalafil 5 mg tablet 5 mg PO DAILY Qty: 30 5RF azathioprine 50 mg tablet 50 mg PO DAILY prednisone 50 mg tablet 50 mg PO DAILY Qty: 7 0RF Referrals: Afshin Flores MD [Primary Care Provider, Family Practice] Stand Alone Forms: Patient Portal/API
[2025-03-09 18:39] LABS: Lipase 582 U/L (23-300)
[2025-03-09] MEDS: PANTOPRAZOLE 40 MG VIAL 80 MG IV (18:58)
[2025-03-09] MEDS: ONDANSETRON 4 MG/2 ML INJ IV (19:19)
[2025-03-09 19:51] LABS: Appearance Urine UA CLEAR; Bilirubin Urine UA NEGATIVE (NEGATIVE); Color Urine UA YELLOW; Glucose Urine UA NEGATIVE (Negative); Ketones Urine UA NEGATIVE (NEGATIVE); Leukocyte Esterase Urine UA NEGATIVE (NEGATIVE); Nitrite Urine UA NEGATIVE (Negative); Occult Blood Urine UA NEGATIVE (Negative); Protein Urine UA NEGATIVE (Negative); Specific Gravity Urine UA <=1.005 (1.000-1.035); Urobilinogen Urine UA 0.2 E.U./dL (0.2); pH Urine UA 6.0 (4.5-8.0)
[2025-03-09] MEDS: ONDANSETRON 4 MG ODT PREPACK 1 BOTTLE MISC (20:36)
== END 2025-03-09 20:45 | disposition home or self-care (01) ==
PROVIDERS: Family Medicine; Emergency Provider Emergency Medicine; Family Provider Family Medicine; PCP Family Medicine
DX: K52.9 Noninfective gastroenteritis and colitis, unspecified (principal); K29.80 Duodenitis without bleeding; R10.9 Unspecified abdominal pain; Z87.19 Personal history of other diseases of the digestive system
CPT/HCPCS: 36415; 74177; 80053; 81001; 83690; 85025; 85610; 85730; 86850; 86900; 86901; 96361; 96374; 96375; 99284; J1885; J2405; J2470; Q9967

== ENCOUNTER → 2025-03-10 17:05 | Outpatient (CLI) | payer BC, OTHER, SELFPAY ==
[2025-03-15 14:09] LABS: Calprotectin, Stool 679 ug/g (0-120)
== END ==
PROVIDERS: Family Provider Family Medicine; PCP Family Medicine; Referring Provider Family Medicine; Visit Provider Family Medicine
DX: K29.80 Duodenitis without bleeding (principal); K52.9 Noninfective gastroenteritis and colitis, unspecified; K62.89 Other specified diseases of anus and rectum; Z87.19 Personal history of other diseases of the digestive system
CPT/HCPCS: 83993; 87177

== ENCOUNTER → 2025-03-13 11:50 | Outpatient (CLI) | payer BC, OTHER, SELFPAY | PROVIDERS: Family Provider Family Medicine; PCP Family Medicine; Visit Provider Family Medicine | DX: L73.9 Follicular disorder, unspecified (principal) | CPT/HCPCS: 87070; 87075; 87205 ==

== ENCOUNTER → 2025-04-03 13:29 | Outpatient (CLI) | payer BC, OTHER, SELFPAY ==
[2025-04-03 14:50] LABS: Hematocrit 34.8 % (41-53); Hemoglobin 11.6 g/dL (13.5-17.5)
== END ==
PROVIDERS: Family Provider Family Medicine; PCP Family Medicine; Referring Provider Family Medicine; Visit Provider Family Medicine
DX: K92.2 Gastrointestinal hemorrhage, unspecified (principal)
CPT/HCPCS: 36415; 85014; 85018

== ENCOUNTER → 2025-04-27 13:58 | Outpatient (CLI) | payer BC, OTHER, SELFPAY ==
--- NOTE | 2025-04-27 13:59 | DI.RAD.S_ITS ---
PROCEDURE: XR CHEST 2V
== END ==
PROVIDERS: Family Provider Family Medicine; PCP Family Medicine; Referring Provider Family Medicine; Visit Provider Family Medicine
DX: R06.02 Shortness of breath (principal)
CPT/HCPCS: 71046

== ENCOUNTER → 2025-06-02 08:54 | Outpatient (CLI) | payer BC, OTHER, SELFPAY ==
[2025-06-02 09:51] LABS: Add Manual Diff / Slide Review NO; Hematocrit 34.3 % (41-53); Hemoglobin 11.4 g/dL (13.5-17.5); Lymphocytes Absolute Auto 3000 /uL (1100-4500); Mean Corpuscular HGB Conc 33.1 % (30-36); Mean Corpuscular Hemoglobin 25.6 PG (26-34); Mean Corpuscular Volume 77.2 fL (80-100); Platelet Count 341 X10^3/uL (150-400)
[2025-06-02 10:14] LABS: Alanine Aminotransferase 18 IU/L (<50); Albumin 3.6 g/dL (3.5-5.0); Albumin Globulin Ratio 1.4 (1.0-2.8); Alkaline Phosphatase 57 U/L (38-126); Blood Urea Nitrogen 17 mg/dL (9-20); Calcium 8.9 mg/dL (8.4-10.2); Carbon Dioxide 28 mmol/L (22-32); Chloride 104 mmol/L (98-107); Estimated Glomerular Filt Rate > 60 mL/min (>60); Globulin 2.6 g/dL (1.7-4.1); Glucose 108 mg/dL (70-99); HEMOLYSIS < 15 (0-50); Potassium 4.2 mmol/L (3.4-5.1); Sodium 137 mmol/L (137-145); Total Protein 6.2 g/dL (6.3-8.2)
[2025-06-02 10:23] LABS: Hemoglobin A1C% w Est Avg Glu 5.4 % (4.0-6.0)
== END ==
PROVIDERS: PCP Family Medicine; Referring Provider Family Medicine; Visit Provider Family Medicine
DX: I10 Essential (primary) hypertension (principal); K52.9 Noninfective gastroenteritis and colitis, unspecified; E78.2 Mixed hyperlipidemia
CPT/HCPCS: 36415; 80053; 83036; 85025; 85651